=== PATIENT | male | born 1990 | race Caucasian/White ===

== ENCOUNTER 2018-10-13 10:56 | Emergency (ER) | payer OTHER ==
[~2018-10-13] VITALS: Ht 190.5 cm; Wt 104.3 kg
[~2018-10-13 10:56] MED LIST: AMOX500 PO; AZIT250 PO; CYCL10 PO; Cyclobenzaprine5 MG PO; HYDACE5 PO; HYDHCL25 PO; IBUP200; IBUP800 PO; NAPR500 PO; Naprosyn500 MG PO; Norco 5-325 Ta1 EACH PO; PERM5TC TOP; PRED10 PO; Percocet 5-3251 EACH PO; RXCLIN PO; RXCYCL10 PO; RXHYDACE PO; Ultram50 MG PO; [UNRECOGNIZED DRUG - OTHER]
[2018-10-13] MEDS ORDERED: NAPR550 PO (12:58)
== END 2018-10-13 13:03 | disposition home or self-care (01) ==
LOC: ER 10:56
DX: S63.601A Unspecified sprain of right thumb, initial encounter (principal); S63.602A Unspecified sprain of left thumb, initial encounter; S00.531A Contusion of lip, initial encounter; F17.200 Nicotine dependence, unspecified, uncomplicated; W23.1XXA Caught, crushed, jammed, or pinched between stationary objects, initial encounter
CPT/HCPCS: 29125; 73130; 99283-25